=== PATIENT | male | born 1985 | race Caucasian/White ===

== ENCOUNTER → 2019-10-21 | Outpatient (CLI) | payer OTHER ==
--- NOTE | 2019-10-21 12:46 | REP ---
RIGHT KNEE, SIX VIEWS: Six views of the right knee are performed. I see no acute fracture or dislocation. There does appear to be a mild to moderate joint effusion. Joint spaces are maintained. IMPRESSION: No fracture or dislocation. Mild to moderate joint effusion. Electronically Signed by Larry De La Rosa MD 10/21/2019 08:00 P
== END ==
LOC: M LRY 12:15
PROVIDERS: ATTEND Nurse Practitioner Family
DX: M25.461 Effusion, right knee (principal)